=== PATIENT | male | born 1985 | race Caucasian/White ===

== ENCOUNTER 2016-10-15 13:21 | Emergency (ER) | payer SELFPAY ==
[2016-10-15] MEDS ORDERED: NAPROSYN500 MG PO (14:41)
[2016-10-15] MEDS ORDERED: FLEXERIL PO (14:41)
[2016-10-15 14:52] VITALS: BP 122/60
== END 2016-10-15 14:51 | disposition home or self-care (01) | DRG 554 ==
LOC: ED 13:21
DX: M19.011 Primary osteoarthritis, right shoulder (principal); F17.200 Nicotine dependence, unspecified, uncomplicated

== ENCOUNTER 2016-11-05 14:21 | Emergency (ER) | payer SELFPAY ==
[~2016-11-05 14:21] MED LIST: FLEXERIL PO; NAPROSYN500 MG PO
[2016-11-05] MEDS ORDERED: MUPIROCIN2 % EX (15:27)
[2016-11-05] MEDS ORDERED: BACTRIM DS1 TAB PO (15:27)
[2016-11-05 15:31] VITALS: BP 112/64
== END 2016-11-05 15:38 | disposition home or self-care (01) | DRG 603 ==
LOC: ED 14:21
DX: L02.413 Cutaneous abscess of right upper limb (principal)

== ENCOUNTER 2016-11-27 20:10 | Emergency (ER) | payer SELFPAY ==
[~2016-11-27] VITALS: Ht 182.9 cm; Wt 91.4 kg
[~2016-11-27 20:10] MED LIST changes: +BACTRIM DS1 TAB PO; +MUPIROCIN2 % EX
[2016-11-27] MEDS ORDERED: CEPHALEXIN500 MG PO (21:04)
[2016-11-27] MEDS ORDERED: BACTRIM DS1 TAB PO (21:04)
[2016-11-27] MEDS ORDERED: LORTAB 10-325 M1 TAB PO (21:04)
[2016-11-27 21:28] VITALS: BP 140/76
[2016-11-28] MEDS ORDERED: CIPROFLOXACN500 MG PO (20:33)
[2016-11-28] MEDS ORDERED: BENADRYL 50MG C50 MG PO (20:33)
== END 2016-11-27 21:29 | disposition home or self-care (01) | DRG 603 ==
LOC: ED 20:10
PROC: 0H9BXZZ Drainage of Right Upper Arm Skin, External Approach (ICD-10-PCS; principal; 2016-11-27)
DX: L02.413 Cutaneous abscess of right upper limb (principal); B95.62 Methicillin resistant Staphylococcus aureus infection as the cause of diseases classified elsewhere; F17.210 Nicotine dependence, cigarettes, uncomplicated

== ENCOUNTER 2016-11-28 19:26 | Emergency (ER) | payer SELFPAY ==
[~2016-11-28] VITALS: Ht 182.9 cm; Wt 91.4 kg
[~2016-11-28 19:26] MED LIST changes: +CEPHALEXIN500 MG PO; +LORTAB 10-325 M1 TAB PO
[2016-11-28] MEDS ORDERED: BENADRYL 50MG C50 MG PO (20:33)
[2016-11-28] MEDS ORDERED: CIPROFLOXACN500 MG PO (20:33)
[2016-11-28 20:50] VITALS: BP 126/66
== END 2016-11-28 20:50 | disposition home or self-care (01) | DRG 603 ==
LOC: ED 19:26
DX: L02.413 Cutaneous abscess of right upper limb (principal); F17.210 Nicotine dependence, cigarettes, uncomplicated; R21 Rash and other nonspecific skin eruption

== ENCOUNTER 2016-11-30 18:37 | Emergency (ER) | payer SELFPAY ==
[~2016-11-30] VITALS: Ht 182.9 cm; Wt 90.0 kg
[~2016-11-30 18:37] MED LIST changes: +BENADRYL 50MG C50 MG PO; +CIPROFLOXACN500 MG PO
[2016-11-30 19:05] VITALS: BP 120/70
== END 2016-11-30 19:05 | disposition home or self-care (01) | DRG 603 ==
LOC: ED 18:37
DX: L02.413 Cutaneous abscess of right upper limb (principal); F17.210 Nicotine dependence, cigarettes, uncomplicated